=== PATIENT | male | born 1990 | race African-American/Black ===

== ENCOUNTER 2017-08-03 21:52 | Emergency (ER) | payer OTHER ==
[~2017-08-03] VITALS: Ht 175.3 cm; Wt 97.5 kg
[2017-08-03] MEDS ORDERED: TOBRADEX ST EYE5 ML OPHTHALMIC (22:02)
[2017-08-03] MEDS ORDERED: BENADRYL25 MG PO (22:59)
== END 2017-08-03 23:09 | disposition home or self-care (01) ==
LOC: ER 21:52
DX: H10.9 Unspecified conjunctivitis (principal)